=== PATIENT | female | born 1985 | race Caucasian/White ===

== ENCOUNTER 2017-01-11 17:45 | Emergency (ER) | payer MEDICAID ==
[~2017-01-11] VITALS: Ht 152.4 cm; Wt 66.2 kg
[2017-01-11 19:02] LABS: BASOPHIL % 0.4 % (0-2); PLATELET COUNT 294 x10^3mcL (130-400); RED CELL DISTRIBUTION WIDTH 12.7 % (11.5-14.5)
[2017-01-11 19:10] LABS: CALCIUM 7.9 mg/dL (8.5-10.1); CARBON DIOXIDE 25.2 mmol/L (21-32); CHLORIDE SERUM 112 mmol/L (98-107); CREATININE SERUM 0.7 mg/dL (0.6-1.0); GFR1 > 60 mL/min; GLUCOSE SERUM 105 mg/dL (74-106); POTASSIUM SERUM 3.5 mmol/L (3.5-5.1); SODIUM SERUM 149 mmol/L (136-145)
[2017-01-11 19:16] LABS: ALBUMIN 3.8 g/dL (3.4-5.0); ALKALINE PHOSPHATASE 69 U/L (46-116); ALT/SGPT 19 U/L (14-59); AMYLASE 46 U/L (25-115); AST/SGOT 29 U/L (15-37); BILIRUBIN TOTAL 0.18 mg/dL (0.20-1.00); LIPASE 194 IU/L (73-393); TOTAL PROTEIN, SERUM 7.5 g/dL (6.4-8.2)
[2017-01-12 08:55] VITALS: BP 110/60
== END 2017-01-12 08:55 | disposition home or self-care (01) ==
LOC: ED 17:45
PROVIDERS: Emergency Medicine
DX: T51.91XA Toxic effect of unspecified alcohol, accidental (unintentional), initial encounter (principal); R45.1 Restlessness and agitation; R41.82 Altered mental status, unspecified; Y92.89 Other specified places as the place of occurrence of the external cause
CPT/HCPCS: 80307; 83880; G0480; J1630; J2060; J2405; J3411; J3490

== ENCOUNTER 2018-12-12 07:57 | Emergency (ER) | payer MEDICAID ==
[~2018-12-12] VITALS: Ht 152.4 cm; Wt 60.3 kg
[2018-12-12 08:07] VITALS: BP 144/81; Ht 152.4 cm; Wt 60.3 kg
== END 2018-12-12 08:48 | disposition home or self-care (01) ==
LOC: ED 07:57
DX: N12 Tubulo-interstitial nephritis, not specified as acute or chronic (principal); Z91.040 Latex allergy status
CPT/HCPCS: J0696